=== PATIENT | male | born 2000 | race Caucasian/White ===

== ENCOUNTER 2022-10-08 21:27 | Emergency (ER) | payer OTHER, SELFPAY ==
[2022-10-08 21:37] VITALS: BP 135/80; PULSE 105; RESP 18; TEMP 36.7; O2SAT 96; BMI 34.2
[2022-10-09 00:09] LABS: Influenza A - CEPHEID Flu A NEGATIVE (NEGATIVE); Influenza B - CEPHEID Flu B NEGATIVE (NEGATIVE); Respiratory Syncytial Virus Negative (Negative)
[2022-10-09 00:12] VITALS: BP 129/79; PULSE 78; RESP 16; O2SAT 100
[2022-10-09 00:13] LABS: COVID-19 CEPHEID 4-PLEX PCR Negative (Negative)
[2022-10-09 00:46] VITALS: TEMP 37.1
[2022-10-09] MEDS: KETOROLAC 30 MG/ML VIAL IM (00:46)
[2022-10-09 00:55] LABS: Monotest Negative (Negative)
[2022-10-09 01:28] VITALS: BP 135/74; PULSE 75; RESP 16; O2SAT 100
--- NOTE | 2022-10-09 01:33 | ED.URI ---
HPI - URI/Sore Throat General Chief Complaint: Upper Respiratory Symptoms Stated Complaint: sore throat Time Seen by Provider: 10/08/22 22:56 Source: patient Mode of arrival: Ambulatory History of Present Illness HPI Narrative: 22-year-old male nonsmoker with noncontributory medical history presents for evaluation of an increasingly sore throat over the past few days. He was here with his child over the course of the weekend who was diagnosed with influenza a. He had presented to another clinic a few days ago and was tested for strep and flu was found to be negative. Today his symptoms started getting a bit worse any has pain with swallowing but no obstruction to swallowing. He denies any headache or blurred vision has no fever or chills. She denies nausea, vomiting or diarrhea. Related Data Allergies Allergy/AdvReac Type Severity Reaction Status Date / Time No Known Drug Allergies Allergy Verified 10/09/22 01:01 Review of Systems Review of Systems Narrative: GENERAL: see HPI HEENT: see HPI RESPIRATORY: see HPI CARDIOVASCULAR: Denies chest pain, palpitations, orthopnea, edema, GASTROINTESTINAL: Denies nausea, vomiting, abdominal pain, diarrhea, constipation, melena. : Denies dysuria, frequency, incontinence, hematuria, urinary retention. MUSCULOSKELETAL: denies weakness, joint pain, or bony pain SKIN: Denies rash, skin lesions, or other NEUROLOGIC: Denies weakness, headache, numbness, change in speech, confusion, seizures, incoordination. PSYCHIATRIC: No concerning psychosocial issues. 12 point review of systems is negative except for those stated above Patient History Social History Smoking Status: Never smoker Smoking Status: Never smoker Substance Use Type: does not use Exam Narrative Exam Narrative: GEN: AOx3 and in mild distress EYES: Pupils are equal, round, and reactive to light and accommodation. Extraoccular muscles are intact bilaterally. There is no subconjunctival hemorrhage or exudate. ENT: Moderate postpharyngeal erythema without any significant tonsillar swelling or exudate, no mass effect or uvular pointing to suggest abscess. CHEST: Lungs are clear to auscultation bilaterally and free of wheezes, rales, or rhonchi. Heart rate is regular rhythm, there are no murmurs, clicks, rubs, or gallops. There is no chest wall tenderness. ABD: Abdomen is soft and nontender. There is no guarding or rebound. Bowel sounds are normal in all 4 quadrants. There is no mass or organomegaly. EXT: Full painless ROM of all extremities with no loss of sensation or strength. SKIN: Warm, pink, and dry. No erythema or rash Initial Vital Signs Initial Vital Signs: Vital Signs Temperature 98.1 F 10/08/22 21:37 Pulse Rate 105 H 10/08/22 21:37 Respiratory Rate 18 10/08/22 21:37 Blood Pressure 135/80 10/08/22 21:37 Pulse Oximetry 96 10/08/22 21:37 Oxygen Delivery Method 10/08/22 21:37 Course Orders Ordered: ED Orders 10/08/22 21:45 Throat Culture Stat 10/08/22 23:12 Covid-19 + FLU A/B + RSV - PCR Stat 10/09/22 00:43 Monotest Stat Discontinued Medications Ketorolac Tromethamine (Ketorolac 30 Mg/Ml Vial) 30 mg IM NOW ONE Stop: 10/09/22 00:40 Last Admin: 10/09/22 00:46 Dose: 30 mg Documented By: [email or web address] Vital Signs Vital signs: Vital Signs - 8 hr 10/08/22 21:37 10/09/22 00:12 10/09/22 00:46 Temperature 98.1 F 98.8 F Pulse Rate 105 H 78 Respiratory Rate 18 16 Blood Pressure 135/80 129/79 Pulse Oximetry 96 100 Oxygen Delivery Method Room Air Room Air 10/09/22 01:28 Temperature Pulse Rate 75 Respiratory Rate 16 Blood Pressure 135/74 Pulse Oximetry 100 Oxygen Delivery Method Room Air MDM - URI/Sore Throat Lab Data Labs: Lab Results 10/08/22 10/09/22 Range/Units 23:12 00:43 SARS-CoV-2 (PCR) Negative (Negative) Monoscreen Negative (Negative) Influenza A (RT-PCR) Flu a negative (NEGATIVE) Influenza B (RT-PCR) Flu b negative (NEGATIVE) RSV (PCR) Negative (Negative) Point of Care Testing Rapid Strep A Negative Discharge Plan Departure Patient Disposition: Home Clinical Impression: Pharyngitis Instructions: DI for Pharyngitis/Tonsillopharyngitis -- Adult Activity Restrictions/Additional Instructions: *You have been diagnosed with [pharyngitis without evidence of strep, COVID, RSV or influenza. As we discussed the culture is pending and should result in the next 2-3 days. Furthermore, your mono test is also negative.] *What to do: *Please continue to take Tylenol and Motrin for pain and fever *Please follow up with your primary care provider in 2-3 days, call for an appointment. Let them know you were seen in the Emergency Department and that we ask that you be seen in follow up. We will electronically transmit a record of today's note if your PCP is in our system *If you do not have a primary care provider please contact the [facility] Resource line at [phone]. They will ask some questions about your medical history and help get you set up with a doctor in the community. *Return to Emergency Department if you should have any new, worsening or concerning symptoms, such as [fever greater than 101 F, shaking chills, worsening pain, persistent vomiting or other bothersome symptoms] Visit Report Forms: Patient Portal/API
== END 2022-10-09 01:30 | disposition home or self-care (01) ==
PROVIDERS: Emergency Provider Emergency Medicine
DX: J02.9 Acute pharyngitis, unspecified (principal); Z20.822 Contact with and (suspected) exposure to COVID-19
CPT/HCPCS: 0241U; 86318; 87070; 87880; 96372; 99283; J1885